=== PATIENT | female | born 1980 | race Caucasian/White ===

== ENCOUNTER 2016-03-13 11:54 | Inpatient (IN) | payer OTHER ==
[~2016-03-13] VITALS: Ht 170.2 cm; Wt 190.0 kg
[2016-03-13 12:29] VITALS: BP 132/94; PULSE 125; RESP 20; TEMP 97.8; O2SAT 99
[2016-03-13] MEDS ORDERED: METF500T PO (12:32)
--- NOTE | 2016-03-13 12:43 | PD ---
HPI Chief Complaint: Psychiatric Symptoms Time Seen by Provider: 12:42 Travel History International Travel<30 days: No Contact w/Intl Traveler<30days: No Traveled to known affect area: No History of Present Illness HPI 35-year-old female with history of attempted suicide twice in the past 7 years, is brought to the hospital via ambulance from [facility] for psychiatric evaluation. Patient states history of polycystic ovarian disease and chronic low back pain. Patient states her plan for suicide is to take a bottle of sedating allergy pills, and then hang herself. Patient states she has her typical back pain but otherwise no acute medical issues. Patient has no known drug allergies. PFSH Past Medical History ?: Not Social History Alcohol Use: No Tobacco Use: No Substance Use: No Allergies-Medications (Allergen,Severity, Reaction): Coded Allergies: No Known Allergies (Unverified , 03/13/16) Reported Meds & Prescriptions Reported Meds & Active Scripts Active Reported Metformin (Metformin HCl) 500 Mg Tab 500 Mg PO BIDPC With meals Review of Systems General / Constitutional: No: Fever Eyes: No: Visual changes HENT: No: Headaches Cardiovascular: No: Chest Pain or Discomfort Respiratory: No: Shortness of Breath Gastrointestinal: No: Abdominal Pain Genitourinary: No: Dysuria Musculoskeletal: No: Pain Skin: No Rash Neurologic: No: Weakness Psychiatric: Positive: Depression, Suicidal Ideations, No: Substance Abuse, Homicidal Ideation Endocrine: No: Polydipsia Hematologic/Lymphatic: No: Easy Bruising Physical Exam Narrative GENERAL: Patient is morbidly obese, is tearful but in no acute distress. SKIN: Warm and dry. Normal color. Normal turgor. HEAD: Atraumatic. Normocephalic. EYES: Pupils equal and round. No scleral icterus. No injection or drainage. ENT: No nasal bleeding or discharge. Mucous membranes pink and moist. Pharynx is normal. NECK: Trachea midline. No JVD. CARDIOVASCULAR: Regular rate and rhythm. RESPIRATORY: No accessory muscle use. Clear to auscultation. Breath sounds equal bilaterally. MUSCULOSKELETAL: Extremities without clubbing, cyanosis, or edema. No obvious deformities. NEUROLOGICAL: Awake and alert. No obvious cranial nerve deficits. Motor grossly within normal limits. Five out of 5 muscle strength in the arms and legs. Normal speech. PSYCHIATRIC: Appropriate mood and affect; insight and judgment normal. Data Data Last Documented VS Vital Signs Date Time Temp Pulse Resp B/P Pulse Ox O2 Delivery O2 Flow Rate FiO2 03/13/16 12:29 97.8 125 20 132/94 99 Orders Urinalysis - C+S If Indicated (03/13/16 12:49) Drug Screen, Random Urine (03/13/16 12:49) Ed Urine Pregnancytest Poc (03/13/16 12:49) Psych Screen (03/13/16 12:49) Ibuprofen (Motrin) (03/13/16 13:00) Acetaminophen (Tylenol) (03/13/16 13:00) MDM Medical Decision Making Medical Screen Exam Complete: Yes Emergency Medical Condition: Yes Differential Diagnosis Tuttle act. Suicidal ideation. Acute depression. Chronic low back pain. Narrative Course Patient is stable at time of exam. Urine and urinalysis is performed. Urine drug screen is performed. Patient is given ibuprofen 600 mg by mouth as well as 1000 mg acetaminophen by mouth. Patient is medically cleared for psychiatric evaluation. Diagnosis Primary Impression: Medical clearance for psychiatric admission Additional Impression: Suicidal ideations Condition: Stable Terrell Ernandez Mar 13, 2016 12:43
[2016-03-13] MEDS ORDERED: ACETAMINOPHEN 500 MG CPLT PO ONE (13:00)
[2016-03-13] MEDS ORDERED: IBUPROFEN 600 MG TAB PO ONE (13:00)
[2016-03-13 13:20] LABS: BACTERIA, URINE FEW /hpf; BLOOD, URINE NEG (NEG); COMMENT (UR) CULTURE INDICATED; CULTURE IF INDICATED CULTURE INDICATED; GLUCOSE,URINE NEG (NEG); KETONE, URINE NEG (NEG); MUCUS URINE FEW /lpf (OCC); NITRITE,URINE NEG (NEG); PH, URINE 5.5 (5.0-8.5); SQUAMOUS EPITHELIAL CELL URINE 13 /hpf (0-5); URINE COLOR YELLOW (YELLW/STRAW)
[2016-03-13 13:30] LABS: AMPHETAMINE, URINE NEG (NEG); BARBITURATES, URINE NEG (NEG); COCAINE, URINE NEG (NEG)
[2016-03-13 15:22] VITALS: BP 131/88; PULSE 110; RESP 20; TEMP 98.5; O2SAT 97
[2016-03-13] MEDS ORDERED: LORazepam 2 MG/ML VIAL IM PRN (19:00)
[2016-03-13] MEDS ORDERED: MAGNESIUM HYDROXIDE SUSP 30 ML CUP PO PRN (19:00)
[2016-03-13] MEDS ORDERED: ALUMINUM/MAGNESIUM/SIMETH 30 ML CUP PO PRN (19:00)
[2016-03-13] MEDS: LORazepam 1 MG TAB PO PRN (19:14)
[2016-03-13 20:26] VITALS: BP 178/84; PULSE 102; RESP 20; O2SAT 96
[2016-03-14 00:58] VITALS: BP 130/59; PULSE 115; RESP 20; TEMP 98; O2SAT 96
[2016-03-14] MEDS: LORazepam 1 MG TAB PO PRN ×3 (01:07→17:26)
[2016-03-14] MEDS: ACETAMINOPHEN 325 MG TAB PO PRN (01:32)
[2016-03-14 06:24] VITALS: BP 133/60; PULSE 100; RESP 18; TEMP 97.7; O2SAT 95
[2016-03-14 07:50] LABS: ANION GAP 10 MEQ/L (5-15); BICARBONATE 26.2 MEQ/L (21.0-32.0); BLOOD UREA NITROGEN 14 MG/DL (7-18); CHLORIDE 105 MEQ/L (98-107); GLOMERULAR FILTRATION RATE 109 ML/MIN (>89); HDL CHOLESTEROL 36.1 MG/DL (40.0-60.0); LDL CHOLESTEROL 111 MG/DL (0-99); POTASSIUM 3.6 MEQ/L (3.5-5.1); SODIUM (NA) 141 MEQ/L (136-145)
[2016-03-14] MEDS: metFORMIN HCL 500 MG TAB PO SCH ×2 (09:27→17:26)
[2016-03-14] MEDS ORDERED: PILL SPLITTER OTHER PRN (10:15)
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
[2016-03-14 10:54] LABS: HEMOGLOBIN A1a 1.2 %; HEMOGLOBIN A1b 0.9 %; HEMOGLOBIN Ao 85.6 %; HEMOGLOBIN F 1.3 %; HEMOGLOBIN LA1C 1.8 %; HEMOGLOBIN P3 3.3 %
[2016-03-14] MEDS: clonazePAM 0.5 MG TAB PO SCH ×2 (11:17→21:07)
[2016-03-14] MEDS: CITALOPRAM HYDROBROMIDE 20 MG TAB PO SCH (11:18)
[2016-03-14] MEDS: GABAPENTIN 100 MG CAP PO SCH ×2 (13:35→17:26)
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
--- NOTE | 2016-03-14 17:49 | EKG ---
Date Performed: 03/14/2016 Time Performed: 10:47:49 PTAGE: 35 years EKG: SINUS TACHYCARDIA POSSIBLE ANTERIOR MYOCARDIAL INFARCTION , PROBABLY OLD ABNORMAL RHYTHM EC G NO PREVIOUS TRACING DOCTOR: Loretta Zhang Interpretating Date/Time 03/14/2016 17:47:57
[2016-03-14] MEDS ORDERED: IOHEXOL 350 MG/ML 10 ML VIAL (for RAD DIAG) IV ONE (18:31)
--- NOTE | 2016-03-14 19:52 | RADRPT ---
EXAM DATE/TIME: 03/14/2016 18:28 [facility] COMPARISON: No previous studies available for comparison. INDICATIONS : Lump near right mandibular angle. IV CONTRAST: 47 cc Omnipaque 300 (iohexol) IV RADIATION DOSE: 44.52 CTDIvol (mGy) MEDICAL HISTORY : None SURGICAL HISTORY : None. ENCOUNTER: Initial ACUITY: >1 yr PAIN SCALE: 2/10 LOCATION: Right submandibular TECHNIQUE: Volumetric scanning of the neck was performed. Using automated exposure control and a djustment of the mA and/or kV according to patient size, radiation dose was kept as low as reasonably achievable to obtain optimal diagnostic quality images. FINDINGS: There is a 2.7 cm lobulated mass seen at the posterior superficial aspect of the right parotid gland. There do appear to be prominent enlarged lymph nodes in the digastric regions bilater ally measuring up to 1.4 cm on the right and 1.9 cm on the left. There are enlarged lymph nodes in t he superior anterior triangle regions bilaterally. There are normal sized lymph nodes seen in the po sterior triangles bilaterally. There are mildly prominent lymph nodes seen in the right submandibular region. The nasopharynx appears grossly intact. The tonsils appear symmetrically prominent. A focal mass or abscess is not seen. The hypopharynx appears normal. The glottic structures appear intact. The vi sualized portions of the paranasal sinuses are clear. The visualized portions of the orbits are kelin l. The left parotid gland is free of focal masses. There is fatty atrophy of the parotid glands cornelius aterally. The submandibular glands are unremarkable. CONCLUSION: 1. Lobulated mass seen at the posterior superficial aspect of the right parotid gland. A neoplasm nee ds to be suspected. Adenopathy could have this appearance but this would be a dominant lymph node co mpared to all the other enlarged lymph nodes in the neck. 2. Mildly enlarged lymph nodes in the digastric regions and anterior triangle regions bilaterally. 3. Prominence of the tonsils. This area can be directly inspected. Luis Feliciano MD on March 14, 2016 at 19:16 Board Certified Radiologist. This report was verified electronically.
[2016-03-14 20:28] VITALS: BP 135/76; PULSE 103; RESP 17; TEMP 97.9; O2SAT 93
[2016-03-15 06:16] VITALS: BP 165/99; PULSE 92; RESP 18; TEMP 98.3; O2SAT 96
--- NOTE | 2016-03-15 09:06 | RADRPT ---
EXAM DATE/TIME: 03/15/2016 08:27 [facility] COMPARISON: No previous studies available for comparison. INDICATIONS : Lower back pain. RADIATION DOSE: 51.59 CTDIvol (mGy) MEDICAL HISTORY : None SURGICAL HISTORY : None. ENCOUNTER: Initial ACUITY: 2 days PAIN SCALE: 4/10 LOCATION: lower back TECHNIQUE: Volumetric scanning of the lumbar spine was performed. Multiplanar reconstructions in the sagittal, coronal and oblique axial planes were performed. Using automated exposure control and adjustment of the mA and/or kV according to patient size, radiation dose was kept as low as reasonably achievable t o obtain optimal diagnostic quality images. FINDINGS: VERTEBRAE: Normal vertebral body height. Schmorl's node formation anterior aspect of L3-4 endplate ALIGNMENT: No evidence of subluxation. T12-L1: The thecal sac has a normal diameter. No evidence of disc bulge or protrusion. The neural foramina are patent bilaterally. L1-L2: The thecal sac has a normal diameter. No evidence of disc bulge or protrusion. The neural foramina are patent bilaterally. L2-L3: The thecal sac has a normal diameter. No evidence of disc bulge or protrusion. The neural foramina are patent bilaterally. L3-L4: The thecal sac has a normal diameter. No evidence of disc bulge or protrusion. The neural foramina are patent bilaterally. L4-L5: The thecal sac has a normal diameter. No evidence of disc bulge or protrusion. The neural foramina are patent bilaterally. L5-S1: The thecal sac has a normal diameter. No evidence of disc bulge or protrusion. The neural foramina are patent bilaterally. CONCLUSION: Normal examination. Chronic disc space change anteriorly at L3-4 without evidence of acute fracture. Nain Augustin MD on March 15, 2016 at 9:01 Board Certified Radiologist. This report was verified electronically.
[2016-03-15] MEDS: clonazePAM 0.5 MG TAB PO SCH ×2 (09:22→21:04)
[2016-03-15] MEDS: PANTOPRAZOLE SOD 40 MG DELAYED RELEASE TAB PO SCH (09:23)
[2016-03-15] MEDS: ACETAMINOPHEN 325 MG TAB PO PRN (09:23)
[2016-03-15] MEDS: GABAPENTIN 100 MG CAP PO SCH ×3 (09:23→17:49)
[2016-03-15] MEDS: CITALOPRAM HYDROBROMIDE 20 MG TAB PO SCH (09:23)
[2016-03-15] MEDS: metFORMIN HCL 500 MG TAB PO SCH ×2 (09:23→17:49)
--- NOTE | 2016-03-15 12:59 | HHI.PYPN ---
Subjective Remarks Patient seen and examined. Chart reviewed. Case discussed with nursing staff who reports patient sleep is disturbed significantly by nightmares. On my examination today, patient complains of nightmares disturbing sleep related to her traumatic history. She remains depressed. She endorses ongoing vague suicidal ideation although she denies any urge to hurt herself on the inpatient psychiatric unit. Denies side effects from medications. Review of Systems Other No physical complaints today Objective Alert: Yes [place]: Person (O x 3) Mood: Depressed Affect: Restricted Memory Intact: Comment (intact) Hallucinations: Other (no AVH) Delusions: No Delusion Type: Other (no delusions) Suicidal: Ideation (vague SI. No reported urge to hurt herself on the inpatient psychiatric unit.) Homicidal: Ideation (no HI) Insight/Judgement Fair Remarks Thought process linear. Speech within normal limits for rate, tone and volume. No motoric abnormalities noted. Labs Date/Time Procedure Status Source Growth 03/13/16 13:00 Urine Culture - Final Complete Urine Clean Catch 50-100,000 CFU/ML MIXED GRAM POSITIVE... Labs reviewed. Vitals/IOs Vital Signs Date Time Temp Pulse Resp B/P Pulse Ox O2 Delivery O2 Flow Rate FiO2 03/15/16 06:16 98.3 92 18 165/99 96 03/13/16 20:26 Room Air Intake and Output 03/14/16 03/14/16 03/15/16 08:00 16:00 00:00 Intake Total 240 ml 960 ml 360 ml Output Total 1 ml Balance 239 ml 960 ml 360 ml Assessment & Plan Problem List: (1) Anxiety disorder, unspecified Assessment & Plan: Suspect post traumatic stress disorder ICD Code: F41.9 (2) Major depressive disorder ICD Code: F32.9 Assessment & Plan Add prazosin 1 mg at bedtime for traumatic nightmares. Risks and benefits discussed with patient. I cautioned patient that this is an antihypertensive and so to watch out for hypotensive effects. Continue other psychotropics as ordered. Hospitalist consult noted and appreciated. Continue other care as ordered. Justification for Cont. Inpt. Monitoring for safety Discharge Planning Per Dr. Harvey Request HC Surrog/Guard Advoc?: No Problem Qualifiers (1) Major depressive disorder: Qualified Code: F33.2 - Severe episode of recurrent major depressive disorder, without psychotic features Rosendo Scott MD Mar 15, 2016 12:58
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
[2016-03-15 17:18] LABS: AUTOMATED NEUTROPHIL # 9.2 TH/MM3 (1.8-7.7); BASOPHIL # 0.1 TH/MM3 (0-0.2); BASOPHIL % 0.9 % (0.0-2.0); EOSINOPHIL # 0.3 TH/MM3 (0-0.4); EOSINOPHIL % 2.5 % (0.0-4.0); HEMO FLAGS DIFF FINAL; LYMPH % 22.3 % (9.0-44.0); MEAN CELL VOLUME 92.2 FL (80.0-100.0); MEAN CORPUSCULAR HEMOGLOBIN 31.5 PG (27.0-34.0); MEAN CORPUSCULAR HGB CONC 34.2 % (32.0-36.0); MONO % 6.7 % (0.0-8.0); NEUT % 67.6 % (16.0-70.0); PLATELET COUNT 288 TH/MM3 (150-450); RED BLOOD COUNT 4.56 MIL/MM3 (4.00-5.30); RED CELL DISTRIBUTION WIDTH 13.9 % (11.6-17.2); WHITE BLOOD COUNT 13.5 TH/MM3 (4.0-11.0)
[2016-03-15 18:58] VITALS: BP 138/86; PULSE 90; RESP 18; TEMP 98; O2SAT 98
[2016-03-15] MEDS: PRAZOSIN HCL 1 MG CAP PO SCH (21:04)
[2016-03-15] MEDS: LORazepam 1 MG TAB PO PRN (23:49)
[2016-03-16] VITALS: BP 136/88; PULSE 89; RESP 17; TEMP 97.7; O2SAT 93
[2016-03-16 06:23] VITALS: BP 141/87; PULSE 87; RESP 15; TEMP 97.5; O2SAT 94
[2016-03-16] MEDS: CITALOPRAM HYDROBROMIDE 20 MG TAB PO SCH (08:14)
[2016-03-16] MEDS: clonazePAM 0.5 MG TAB PO SCH (08:14)
[2016-03-16] MEDS: metFORMIN HCL 500 MG TAB PO SCH ×2 (08:14→17:37)
[2016-03-16] MEDS: GABAPENTIN 100 MG CAP PO SCH ×3 (08:14→17:37)
[2016-03-16] MEDS: PANTOPRAZOLE SOD 40 MG DELAYED RELEASE TAB PO SCH (08:14)
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
--- NOTE | 2016-03-16 15:49 | HHI.PYPN ---
Subjective Remarks Patient seen and examined. Chart reviewed. Case discussed with nursing staff. On my examination today, the patient reports that her nightmares were completely eliminated with the addition of prazosin. Her sleep remains somewhat poor though reportedly because she has a lot of anticipatory anxiety related to having nightmares. We discussed strategies to manage this anxiety and agreed to temporarily titrate her Klonopin at bedtime. Mood remains somewhat poor and the patient continues to endorse suicidal ideation outside of the structure of the inpatient unit. She denies any urge to hurt herself on the inpatient psychiatric unit on direct questioning. She denies any side effects from medications. Review of Systems Other No physical complaints today Objective Alert: Yes [place]: Person (once again O x 3) Mood: Depressed Affect: Blunted Memory Intact: Comment (intact) Hallucinations: Other (no AVH) Delusions: No Delusion Type: Other (no delusions) Suicidal: Ideation (ongoing vague SI. No reported urge to hurt herself on the inpatient psychiatric unit.) Homicidal: Ideation (no HI) Insight/Judgement Fair Remarks Thought process linear. Speech within normal limits for rate, tone and volume. No motoric abnormalities noted. Labs Test 03/15/16 17:05 White Blood Count 13.5 TH/MM3 Red Blood Count 4.56 MIL/MM3 Hemoglobin 14.3 GM/DL Hematocrit 42.0 % Mean Corpuscular Volume 92.2 FL Mean Corpuscular Hemoglobin 31.5 PG Mean Corpuscular Hemoglobin 34.2 % Concent Red Cell Distribution Width 13.9 % Platelet Count 288 TH/MM3 Mean Platelet Volume 8.3 FL Neutrophils (%) (Auto) 67.6 % Lymphocytes (%) (Auto) 22.3 % Monocytes (%) (Auto) 6.7 % Eosinophils (%) (Auto) 2.5 % Basophils (%) (Auto) 0.9 % Neutrophils # (Auto) 9.2 TH/MM3 Lymphocytes # (Auto) 3.0 TH/MM3 Monocytes # (Auto) 0.9 TH/MM3 Eosinophils # (Auto) 0.3 TH/MM3 Basophils # (Auto) 0.1 TH/MM3 CBC Comment DIFF FINAL Differential Comment Lactate Dehydrogenase 247 U/L Date/Time Procedure Status Source Growth 03/13/16 13:00 Urine Culture - Final Complete Urine Clean Catch 50-100,000 CFU/ML MIXED GRAM POSITIVE... Labs reviewed. Last Impressions Lumbar Spine CT 03/15/16 0000 Signed Impressions: Service Date/Time: Tuesday, March 15, 2016 08:27 - CONCLUSION: Normal examination. Chronic disc space change anteriorly at L3-4 without evidence of acute fracture. Nain Augustin MD Neck CT 03/14/16 0000 Signed Impressions: Service Date/Time: Monday, March 14, 2016 18:28 - CONCLUSION: 1. Lobulated mass seen at the posterior superficial aspect of the right parotid gland. A neoplasm needs to be suspected. Adenopathy could have this appearance but this would be a dominant lymph node compared to all the other enlarged lymph nodes in the neck. 2. Mildly enlarged lymph nodes in the digastric regions and anterior triangle regions bilaterally. 3. Prominence of the tonsils. This area can be directly inspected. Luis Feliciano MD Vitals/IOs Vital Signs Date Time Temp Pulse Resp B/P Pulse Ox O2 Delivery O2 Flow Rate FiO2 03/16/16 06:23 97.5 87 15 141/87 94 03/13/16 20:26 Room Air Intake and Output 03/15/16 03/15/16 03/16/16 08:00 16:00 00:00 Intake Total 247 ml 600 ml 240 ml Balance 247 ml 600 ml 240 ml Assessment & Plan Problem List: (1) Anxiety disorder, unspecified ICD Code: F41.9 (2) Major depressive disorder ICD Code: F32.9 Assessment & Plan Titrate Klonopin to 0.5 mg daily and 1 mg at bedtime. Continue prazosin as ordered. Continue Celexa as ordered with plans to titrate the next day or 2. Appreciate ongoing hospitalist input. Continue other medications and care as ordered. Somewhat lengthy discussion with patient about recovery from posttraumatic stress. Justification for Cont. Inpt. Concern for safety. Complicating conditions. Discharge Planning Pending psychiatric stabilization Request HC Surrog/Guard Advoc?: No Problem Qualifiers (1) Major depressive disorder: Qualified Code: F33.2 - Severe episode of recurrent major depressive disorder, without psychotic features Rosendo Scott MD Mar 16, 2016 15:49
[2016-03-16 18:54] VITALS: BP 134/75; PULSE 85; RESP 18; TEMP 98.3; O2SAT 96
[2016-03-16] MEDS: PRAZOSIN HCL 1 MG CAP PO SCH (21:42)
[2016-03-16] MEDS: LORazepam 1 MG TAB PO PRN (21:42)
[2016-03-16] MEDS: clonazePAM 1 MG TAB PO SCH (21:42)
[2016-03-17 05:41] VITALS: BP 147/91; PULSE 90; RESP 15; TEMP 98.9; O2SAT 96
[2016-03-17] MEDS: CITALOPRAM HYDROBROMIDE 20 MG TAB PO SCH (08:15)
[2016-03-17] MEDS: metFORMIN HCL 500 MG TAB PO SCH ×2 (08:15→17:03)
[2016-03-17] MEDS: PANTOPRAZOLE SOD 40 MG DELAYED RELEASE TAB PO SCH (08:15)
[2016-03-17] MEDS: GABAPENTIN 100 MG CAP PO SCH ×3 (08:15→17:03)
[2016-03-17] MEDS: clonazePAM 0.5 MG TAB PO SCH (09:34)
[2016-03-17 11:06] LABS: INTERNATIONAL NORMALIZED RATIO 0.9 RATIO; PROTHROMBIN TIME - PATIENT 10.4 SEC (9.8-11.6)
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
[2016-03-17 14:29] VITALS: BP 138/81; PULSE 97; RESP 18; TEMP 98; O2SAT 100
[2016-03-17 14:45] VITALS: BP 168/79; PULSE 90; RESP 18; TEMP 98.9; O2SAT 94
[2016-03-17 15:00] VITALS: BP 140/75; PULSE 90; RESP 17; O2SAT 96
[2016-03-17] MEDS ORDERED: SODIUM BICARBONATE 8.4% INJ 50 ML ONE (15:17)
[2016-03-17] MEDS ORDERED: LIDOCAINE HCL 1% 30 ML VIAL ONE (15:17)
--- NOTE | 2016-03-17 15:21 | RADRPT ---
EXAM DATE/TIME: 03/17/2016 12:26 [place] COMPARISON: No previous studies available for comparison. INDICATIONS : Right parotid mass. MEDICAL HISTORY : Chronic migraine. Dyspnea. Polycystic ovarian syndrome. Back pain. Chronic fatigue syndrome. Morbid o besity. Endometrial hyperplasia. SURGICAL HISTORY : Cholecystectomy ICD placement. ENCOUNTER: Initial ACUITY: > 1 yr PAIN SCORE: 2/10 LOCATION: Right neck ORGAN: Right parotid mass SPECIMENS: Two core specimen(s) submitted for pathologic evaluation. DEVICE: 18 gauge Temno needle Post procedure scanning reveals no hematoma or other complication. The possibility does exist that the tissue obtained will be non-diagnostic. If the sample is non-diag nostic a repeat biopsy or surgical biopsy may need to be performed. TECHNIQUE: 1. Ultrasound guidance for needle biopsy. 2. Needle biopsy. The risks, benefits, and alternatives to ultrasound guided needle biopsy were explained to the patien t in detail including the risk of bleeding and infection. Written and verbal informed consent was ob tained. With the patient on the ultrasound table, images were obtained. Overlying skin was prepped and drape d in the usual sterile fashion and Lidocaine was utilized as a local anesthetic. A needle was advanced into the identified target and the number of specimens as above obtained and perez bmitted for pathologic evaluation. The patient tolerated the procedure well and left the ultrasound suite in stable condition. CONCLUSION: Uncomplicated ultrasound guided needle biopsy of a right parotid mass. Keven Purcell MD on March 17, 2016 at 15:18 Board Certified Radiologist. This report was verified electronically.
[2016-03-17] MEDS: LORazepam 1 MG TAB PO PRN ×2 (17:02→22:55)
[2016-03-17 18:36] VITALS: BP 135/73; PULSE 90; RESP 18; TEMP 98.4; O2SAT 94
[2016-03-17] MEDS: clonazePAM 1 MG TAB PO SCH (20:25)
[2016-03-17] MEDS: PRAZOSIN HCL 1 MG CAP PO SCH (20:25)
[2016-03-17] MEDS ORDERED: KETOROLAC TROMETHAMINE 60 MG/2 ML (IM) VIAL IM ONE (21:00)
[2016-03-17] MEDS ORDERED: traZODone HCL 50 MG TAB PO SCH (21:00)
[2016-03-17] MEDS: CYCLOBENZAPRINE HCL 10 MG TAB PO PRN (21:25)
[2016-03-18 06:05] VITALS: BP 135/78; PULSE 86; RESP 17; TEMP 97.5; O2SAT 96
[2016-03-18] MEDS: PANTOPRAZOLE SOD 40 MG DELAYED RELEASE TAB PO SCH (07:51)
[2016-03-18] MEDS: GABAPENTIN 100 MG CAP PO SCH ×3 (07:51→17:01)
[2016-03-18] MEDS: CITALOPRAM HYDROBROMIDE 20 MG TAB PO SCH (07:51)
[2016-03-18] MEDS: metFORMIN HCL 500 MG TAB PO SCH ×2 (07:51→17:01)
[2016-03-18] MEDS: clonazePAM 0.5 MG TAB PO SCH (07:52)
[2016-03-18 10:00] VITALS: BP 144/96; PULSE 107; RESP 14; TEMP 98.7; O2SAT 97
--- NOTE | 2016-03-18 10:01 | HHI.PYPN ---
Subjective Remarks Patient seen for evaluation today, she is states that today is the first time that she feels actually much better, with improved mood, and thinking positive about the future. Patient reports better energy, she asked what would be the next step after discharge in order to continue her psychiatric care. She states facing some difficulty sleeping at night, but last night was a little better. She denies suicidal or homicidal ideation, denies visual and auditory hallucinations. Patient has been calm and cooperative in the unit as per nursing. Fully compliant with medications. Review of Systems Other No changes since March 14, 2069 Objective Alert: Yes [place]: Person (once again O x 3), Place, Date, Situation Mood: Calm Affect: Euthymic Memory Intact: Immediate, Recent, Remote, Comment (intact) Hallucinations: Other (no AVH) Delusions: No Delusion Type: Other (no delusions) Suicidal: Ideation (she denies SI) Homicidal: Ideation (no HI) Insight/Judgement Improved Labs Test 03/17/16 10:27 Prothrombin Time 10.4 SEC Prothromb Time International 0.9 RATIO Ratio Activated Partial 28.0 SEC Thromboplast Time Date/Time Procedure Status Source Growth 03/13/16 13:00 Urine Culture - Final Complete Urine Clean Catch 50-100,000 CFU/ML MIXED GRAM POSITIVE... Vitals/IOs Vital Signs Date Time Temp Pulse Resp B/P Pulse Ox O2 Delivery O2 Flow Rate FiO2 03/18/16 06:05 97.5 86 17 135/78 96 Intake and Output 03/17/16 03/17/16 03/18/16 08:00 16:00 00:00 Intake Total 480 ml 2020 ml Balance 480 ml 2020 ml Assessment & Plan Problem List: (1) Anxiety disorder, unspecified ICD Code: F41.9 (2) Major depressive disorder Assessment & Plan: On reevaluation today patient shows visible improvement in mood and affect, she reports good response to current psychotropic regimen, still facing some problems sleeping at night. She denies any recent panic attack, her anxiety is under control. She denies suicidal or homicidal ideation , she denies visual and auditory hallucinations, she is fully medication compliant. Will increase Celexa to 20 mg. ICD Code: F32.9 Assessment & Plan Estimated LOS: days Justification for Cont. Inpt. Patient is still limited medication adjustment, monitor of depressive symptoms and suicidality, safe discharge plan coordination. Discharge Planning Patient will be discharged back home Request HC Surrog/Guard Advoc?: No Problem Qualifiers (1) Major depressive disorder: Qualified Code: F33.2 - Severe episode of recurrent major depressive disorder, without psychotic features Bo Mcdermott MD Mar 18, 2016 10:01
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
[2016-03-18] MEDS: CYCLOBENZAPRINE HCL 10 MG TAB PO PRN (13:26)
[2016-03-18 17:05] VITALS: BP 130/71; PULSE 84; RESP 18; TEMP 97.6; O2SAT 98
[2016-03-18] MEDS: PRAZOSIN HCL 1 MG CAP PO SCH (21:22)
[2016-03-18] MEDS: clonazePAM 1 MG TAB PO SCH (21:22)
[2016-03-18] MEDS: ACETAMINOPHEN 325 MG TAB PO PRN (21:23)
[2016-03-18] MEDS: LORazepam 1 MG TAB PO PRN (21:23)
[2016-03-19 05:54] VITALS: BP 143/79; PULSE 81; RESP 17; TEMP 97.9; O2SAT 93
[2016-03-19] MEDS ORDERED: CITALOPRAM HYDROBROMIDE 20 MG TAB PO SCH (09:00)
[2016-03-19] MEDS ORDERED: CELE20TA PO (09:26)
[2016-03-19] MEDS ORDERED: PRAZ1 PO (09:26)
[2016-03-19] MEDS ORDERED: METF500 PO (09:26)
[2016-03-19] MEDS ORDERED: CLON1 PO (09:26)
[2016-03-19] MEDS ORDERED: GABA100C4 PO (09:26)
[2016-03-19] MEDS: PANTOPRAZOLE SOD 40 MG DELAYED RELEASE TAB PO SCH (09:36)
[2016-03-19] MEDS: clonazePAM 0.5 MG TAB PO SCH (09:36)
[2016-03-19] MEDS: metFORMIN HCL 500 MG TAB PO SCH (09:37)
[2016-03-19] MEDS: GABAPENTIN 100 MG CAP PO SCH ×2 (09:37→13:20)
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
[2016-03-19] MEDS: CYCLOBENZAPRINE HCL 10 MG TAB PO PRN (11:28)
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
== END 2016-03-19 14:25 | disposition home health service (06) | DRG 881 ==
LOC: NEDAMB 11:54 → NEDA 19:03 → H4EA 23:55
PROVIDERS: ADMIT Psychiatry & Neurology Psychiatry; ATTEND Psychiatry & Neurology Psychiatry
PROC: 0CBJ3ZX Excision of Minor Salivary Gland, Percutaneous Approach, Diagnostic (ICD-10-PCS; principal; 2016-03-17)
DX: F32.9 Major depressive disorder, single episode, unspecified (principal); E88.81 Metabolic syndrome and other insulin resistance; Z68.44 Body mass index [BMI] 60.0-69.9, adult; E66.01 Morbid (severe) obesity due to excess calories; D49.0 Neoplasm of unspecified behavior of digestive system; E28.2 Polycystic ovarian syndrome; G43.909 Migraine, unspecified, not intractable, without status migrainosus; M54.5 Low back pain; R53.82 Chronic fatigue, unspecified; R03.0 Elevated blood-pressure reading, without diagnosis of hypertension
CPT/HCPCS: 42400; 70491; 72131; 76942; 80048; 80061; 80307; 81001; 83036; 83615; 84703; 85025; 85610; 85730; 87086; 88305; 88307; 88341; 93005; 99284; J1885; Q9967

== ENCOUNTER 2016-07-24 12:34 | Day surgery (SDC) | payer OTHER ==
[~2016-07-24 12:34] MED LIST: CELE20TA PO; CLON1 PO; GABA100C4 PO; METF500 PO; PRAZ1 PO
[2016-07-24 13:37] VITALS: BP 124/87; PULSE 89; RESP 20; TEMP 98.8; O2SAT 95
[2016-07-24 15:00] VITALS: BP 142/92; PULSE 84; RESP 18; TEMP 98.3; O2SAT 94
[2016-07-24] MEDS ORDERED: LIDOCAINE HCL 1% PF 30 ML VIAL ONE (15:13)
[2016-07-24 15:15] VITALS: BP 154/90; PULSE 89; RESP 18; O2SAT 95
--- NOTE | 2016-07-24 15:29 | RADRPT ---
EXAM DATE/TIME: 07/24/2016 13:42 [place] COMPARISON: EXTERNAL COMPARISON: CT SOFT TISSUE NECK W CONTRAST, March 14, 2016, 18:28. US GUIDED SOFT TISSUE BIOPSY, RT, March 022016, 12:26. [facility], CT SOFT TISSUE NECK,W/ CONTRAST, Jun 18 2016 INDICATIONS : Right parotid palpable lump. MEDICAL HISTORY : Polycystic ovarian syndrome. Migraines. UTI. PTSD. Anxiety. SURGICAL HISTORY : Cholecystectomy ENCOUNTER: Subsequent ACUITY: 4 - 6 months PAIN SCORE: 0/10 LOCATION: Right neck ORGAN: Right parotid gland SPECIMENS: Five core specimen(s) submitted for pathologic evaluation. DEVICE: 20 gauge Tem[place] needle Post procedure scanning reveals no hematoma or other complication. The possibility does exist that the tissue obtained will be non-diagnostic. If the sample is non-porsha gnostic a repeat biopsy or surgical biopsy may need to be performed. TECHNIQUE: 1. Ultrasound guidance for needle biopsy. 2. Needle biopsy. The risks, benefits, and alternatives to ultrasound guided needle biopsy were explained to the patien t in detail including the risk of bleeding and infection. Written and verbal informed consent was ob tained. With the patient on the ultrasound table, images were obtained. There is a right parotid gland mass that is partially solid and cystic measuring approximately 2.4 x 2.2 x 1.6 cm. Overlying skin was pre pped and draped in the usual sterile fashion and Lidocaine was utilized as a local anesthetic. A needle was advanced into the right parotid gland mass and 5 core samples were obtained and submitte d for pathologic evaluation. The patient tolerated the procedure well and left the ultrasound suite in stable condition. CONCLUSION: Uncomplicated ultrasound guided needle biopsy of the right parotid gland mass. Luis Bond MD on July 24, 2016 at 15:26 Board Certified Radiologist. This report was verified electronically.
== END 2016-07-24 15:30 | disposition home or self-care (01) ==
LOC: HRAD 12:34 → HRIP 12:37 → HRAD 15:30
PROVIDERS: ATTEND Otolaryngology Otolaryngology/Facial Plastic Surgery
DX: C07 Malignant neoplasm of parotid gland (principal); E28.2 Polycystic ovarian syndrome; F43.10 Post-traumatic stress disorder, unspecified; F41.9 Anxiety disorder, unspecified
CPT/HCPCS: 42400; 76942; 88305; 88307